=== PATIENT | male | born 1965 | race Caucasian/White ===

== ENCOUNTER 2018-06-28 22:11 | Emergency (ER) | payer OTHER ==
--- NOTE | 2018-06-28 22:12 | PDOC ---
History of Present Illness - General Chief Complaint: Nausea/Vomiting Stated Complaint: ABDOMINAL PAIN Time Seen by Provider: 06/28/18 22:12 History Source: Patient Exam Limitations: No Limitations - History of Present Illness Initial Comments: 06/29/18 00:14 Mr Lomeli is a 52-year-old man with no significant past medical history who returns to the ER with a complaint of abdominal pain. He was seen in the ER more than 1 month ago for similar symptoms He had abdominal pain, CT demonstrated enteritis He was discharged to home to follow up with GI (Which he did) He was scheduled for a colonoscopy but did not complete the prep PT states that he began having pain yesterday Worsened significantly today (+) belching No vomiting Decreased appetite His pain gets worse with eating. He is now in significant pain with some left upper abdominal tenderness. He has also been constipated for almost 1 week 06/29/18 00:14 ROS: GENERAL/CONSTITUTIONAL: No: fever, chills, weakness, loss of appetite. HEAD, EYES, EARS, NOSE AND THROAT: No: change in vision, ear pain, discharge, sore throat, throat swelling. CARDIOVASCULAR: No: chest pain, lightheadedness, palpitations, syncope RESPIRATORY: No: cough, shortness of breath, wheezing, hemoptysis, stridor. GASTROINTESTINAL: Yes: nausea, belching, abdominal pain, abdominal distention, constipation GENITOURINARY: No: dysuria, hematuria, frequency, urgency, flank pain. MUSCULOSKELETAL: No: back pain, neck pain, joint pain, muscle swelling or pain SKIN: No: lesions, pallor, rash or easy bruising. NEUROLOGIC: No: headache, vertigo, paresthesias, weakness ENDOCRINE: No: unexplained weight gain or loss HEMATOLOGIC/LYMPHATIC: No: anemia, easy bleeding, swelling nodes. PE: GENERAL: The patient is in no acute distress, pt appears to be in pain. HEAD: Normal EYES: PERRLA, EOMI, sclera anicteric, conjunctiva clear. ENT: Ears normal, nares patent, oropharynx clear without exudates. Moist mucous membranes. NECK: Normal range of motion, supple without lymphadenopathy, JVD, or masses. LUNGS: Breath sounds equal, clear to auscultation bilaterally. No wheezes, and no crackles. HEART:Regular rate and rhythm, normal S1 and S2 without murmur, rub or gallop. ABDOMEN: Soft, distended, hypoactive bowel sounds, diffusely tender to palpation , no involuntary guarding, no rebound EXTREMITIES: Normal range of motion NEUROLOGICAL: Cranial nerves II through XII grossly intact. Normal speech. No focal neurological deficits. MUSCULOSKELETAL: Back non-tender to palpation, no CVA tenderness SKIN: Warm, Dry, normal turgor, no rashes or lesions noted. Past History - Past Medical History Allergies/Adverse Reactions: Allergies Allergy/AdvReac Type Severity Reaction Status Date / Time No Known Allergies Allergy Verified 06/28/18 22:13 Home Medications: Ambulatory Orders L. Acidophilus/L.bulgaricus [Lactobacillus Tablet] 2 each PO BID PRN #28 tablet 04/27/18 Pantoprazole Sodium [Protonix] 40 mg PO DAILY 04/27/18 Asthma: No COPD: No Diabetes: No - Suicide/Smoking/Psychosocial Hx Smoking Status: No Smoking History: Never smoked Hx Alcohol Use: Yes (SOCIAL ONLY, <1/wk) Drug/Substance Use Hx: No Substance Use Type: None ED Treatment Course - LABORATORY CBC & Chemistry Diagram: 06/28/18 22:45 06/28/18 22:45 Medical Decision Making - Medical Decision Making 06/28/18 23:48 Differential diagnosis includes pancreatitis, diverticulitis, SBO, Ileus, Volvulus, peptic ulcer disease or possibly other etiology for abdominal pain. Will do: labs, CT scan of the abdomen with IV contrast PT requested the medications he was given the last time he was here Will look up Laboratory Tests 06/28/18 06/28/18 22:45 22:45 WBC 8.9 Hgb 13.8 Hct 42.8 Plt Count 284 Sodium 136 Potassium 3.5 Chloride 103 Carbon Dioxide 25 BUN 10 Creatinine 0.9 Random Glucose 130 H 06/28/18 23:49 06/28/18 23:54 06/29/18 00:14 06/29/18 02:17 CT demonstrates: SBO with transition point at the ileocecal valve with out obvious obstructing lesion Will place NGT Will place to admit to hospitalist service Surgical consult in the AM Clinical Impression: SBO, initial presentation 06/29/18 02:56 NGT placed with return of 400 cc fluid Call placed to hospitalist JOSE Stevenson recommends calling Dr Caldwell now for consultation 06/29/18 03:[address] Caldwell Recommended that pt be transferred 06/29/18 04:01 Call placed to [facility] Pt accepted for transfer Pt and made aware Clinical Impression: SBO, initial presentation *DC/Admit/Observation/Transfer Diagnosis at time of Disposition: Small bowel obstruction - Discharge Dispostion Disposition: TRANSFER ACUTE CARE/OTHER HOSP - Referrals - Patient Instructions - Post Discharge Activity - Transfer to Acute Care Facility Receiving Facility: [facility]. Accepting Physician:: Dr. Parnell
[2018-06-28] MEDS ORDERED: ONDANSETRON 4 MG/2 ML VIAL IVPUSH ONE (22:14)
[2018-06-28] MEDS ORDERED: HYDROmorphone HCL CARPU-JECT 1 MG/1 ML DISP.SYRIN IVPB ONE (22:14)
[2018-06-28 22:16] VITALS: BMI 23.8
[2018-06-28] MEDS ORDERED: ONDANSETRON 4 MG/2 ML VIAL ONE (22:52)
[2018-06-28] MEDS ORDERED: HYDROmorphone HCL CARPU-JECT 1 MG/1 ML DISP.SYRIN ONE (22:52)
[2018-06-28 23:06] LABS: BASO % 0.1 % (0-2.0); EOS % 0.7 % (0-4.5); HEMATOCRIT 42.8 % (35.4-49); HEMOGLOBIN 13.8 GM/dl (11.7-16.9); LYMPH % 7.4 % (8-40); MCH 27.1 pg (25.7-33.7); MCHC 32.3 g/dl (32.0-35.9); MEAN CELL VOLUME 84.1 fl (80-96); MEAN PLT VOLUME 9.2 fl (7.5-11.1); MONO % 4.7 % (3.8-10.2); NEUT % 87.1 % (42.8-82.8); PLATELET COUNT 284 K/MM3 (134-434); RBC 5.09 M/mm3 (4.00-5.60); RDW 12.9 % (11.9-15.9); WHITE BLOOD COUNT 8.9 K/mm3 (4.0-10.8)
[2018-06-28 23:20] LABS: ALK PHOS 83 U/L (32-92); AMYLASE 45 U/L (25-125); ANION GAP 8 MMOL/L (8-16); BILIRUBIN,TOTAL 0.9 mg/dl (0.2-1.0); BLOOD UREA NITROGEN 10 mg/dl (7-18); CALCIUM 8.9 mg/dl (8.4-10.2); CHLORIDE 103 mmol/L (98-107); CO2 25 mmol/L (22-28); CREATININE 0.9 mg/dl (0.6-1.3); GLUCOSE,RANDOM 130 mg/dl (74-106); POTASSIUM 3.5 mmol/L (3.5-5.1); SGOT/AST 37 U/L (10-42); SGPT/ALT 58 U/L (10-40); SODIUM 136 mmol/L (136-145); TOT PROT 7.1 g/dl (6.4-8.3)
[2018-06-29 00:13] LABS: LIPASE 55 U/L (73-393)
[2018-06-29] MEDS ORDERED: SODIUM CHLORIDE 1,000 ML IV STA (02:18)
[2018-06-29 04:53] VITALS: BP 127/77; PULSE 65; TEMP 97.6
[2018-06-29] MEDS ORDERED: HEMOQUE TEST 1 EACH EACH ONE ×2 (05:28→05:54)
== END 2018-06-29 05:44 | disposition short-term general hospital (02) ==
LOC: FER 22:11
PROC: 3E033NZ Introduction of Analgesics, Hypnotics, Sedatives into Peripheral Vein, Percutaneous Approach (ICD-10-PCS; principal; 2018-06-28)
PROC: 3E033GC Introduction of Other Therapeutic Substance into Peripheral Vein, Percutaneous Approach (ICD-10-PCS; 2018-06-28)
PROC: 3E0337Z Introduction of Electrolytic and Water Balance Substance into Peripheral Vein, Percutaneous Approach (ICD-10-PCS; 2018-06-28)
DX: K56.609 Unspecified intestinal obstruction, unspecified as to partial versus complete obstruction (principal)
CPT/HCPCS: 36415; 74177-TC; 80053; 82150; 83690; 85025; 99282-25; 99284-25; J7030